=== PATIENT | male | born 1960 | race Caucasian/White ===

== ENCOUNTER → 2016-12-21 | Day surgery (SDC) | payer BC ==
[~2016-12-21] MED LIST: ACETAMINOPHEN 325 MG TAB ONE; ACETYLCHOLINE CHL OPHT SOLN 1:100 2 ML VIAL ONE; DEXAMETHASONE SOD PHOS 4 MG/ML VIAL ONE; EPINEPHrine HCL (1:1000) 1 MG/ML VIAL ONE; LACTATED RINGER'S 1000 ML INJ 1,000 ML ONE; MIDAZOLAM HCL 2 MG/2 ML VIAL ONE; MOXIFLOXACIN 0.5% OPHT SOLN 3 ML BTL ONE; ONDANSETRON HCL 4 MG/2 ML VIAL IV PUSH ONE; PHENYLEPHRINE HCL 10% OPTH SOLN 5 ML BTL ONE; PROPOFOL 200 MG/20 ML AMP IV ONE; SODIUM CHLORIDE 0.9% INJ 10 ML ONE; TETRACAINE 0.5% OPTH SOLN 4 ML BTL ONE; TOBRAMYCIN/DEXAMETHASONE OPTH OINT 3.5 GM TUBE ONE; TRIAMCINOLONE ACETONIDE 40 MG/ML VIAL ONE; ceFAZolin INJ 1,000 MG VIAL ONE; prednisoLONE ACETATE 1% OPHT SUSP 5 ML BTL ONE
--- NOTE | 2016-12-27 06:09 | MP ---
cc: MARGAUX BUENO MD DATE OF SURGERY 12/21/2016 PREOPERATIVE DIAGNOSIS Dislocated posterior chamber intraocular lens right eye. POSTOPERATIVE DIAGNOSIS Dislocated posterior chamber intraocular lens right eye. PROCEDURE Pars plana vitrectomy, removal of a dislocated posterior chamber intraocular lens, insertion of anterior chamber intraocular lens (MTA4UO, 19.0 diopter power), insertion of intravitreal Kenalog right eye. COMPLICATIONS None. BLOOD LOSS Less than [address] العلي, general. INDICATIONS FOR PROCEDURE This is a delightful patient who presented with decreasing visual acuity with dislocated posterior chamber intraocular lens of his right eye. The vision significantly decreased with further displacement of his posterior chamber intraocular lens. The patient was now having severe difficulty driving and working with the dislocated intraocular lens. The patient elected for surgical correction understanding the risks, benefits and alternatives of surgery. PROCEDURE NOTE After informed consent was obtained, the patient was brought to the operating room. General anesthesia was established. The right eye was prepped and draped in sterile fashion with Betadine in the conjunctival fornix. A three-port pars plana vitrectomy was established with self-retaining infusion cannula. Core vitreous was evacuated and vitreous traction surrounding the posterior chamber intraocular lens was relieved. The anterior chamber was filled with Viscoat and the dislocated intraocular lens was brought into the anterior chamber. A scleral tunnel was fashioned a 3.0 crescent blade and keratome. The posterior chamber intraocular lens was removed. An anterior chamber intraocular lens, alcohol MTA4UO, 19.0 diopter power, was inserted into the anterior chamber and rotated into position with a Sinskey hook. The scleral tunnel was closed with 7-0 Vicryl suture. A superior peripheral iridectomy was made with the vitrector. Scleral depression examination revealed no retinal holes, tears or detachments. Intravitreal Kenalog was instilled. The trocars were removed and sclerotomies closed. Subconjunctival injections of Ancef and dexamethasone were given. The eye was patched with Tobramycin ointment. The patient was brought to the recovery room in stable condition. He will continue followup with [facility] for his postoperative care. MD JULIO CESAR Rojas/ELIANE /12:12 AM /5:52 AM
== END | disposition home or self-care (01) ==
LOC: ESDC 06:46
PROVIDERS: ATTEND Ophthalmology
DX: T85.22XA Displacement of intraocular lens, initial encounter (principal)
CPT/HCPCS: 00142; 00145; 66985; 67121; J0171; J0690; J1100; J2250; J2405; J3010; J3301; J7120; V2630